=== PATIENT | male | born 2000 | race Caucasian/White ===

== ENCOUNTER 2021-05-26 19:47 | Emergency (ER) | payer OTHER, SELFPAY ==
[2021-05-26 20:09] VITALS: BP 132/62; PULSE 76; RESP 18; TEMP 36.7; O2SAT 100; BMI 30.5
--- NOTE | 2021-05-26 21:15 | ED_ITS ---
HPI - Ear Problem General Chief complaint: Ear Problems Stated complaint: ear/ jaw pain Time Seen by Provider: 05/26/21 21:15 Source: patient Mode of arrival: ambulatory Limitations: no limitations History of Present Illness HPI Narrative: Patient complaining of pain in the right preauricular area and right ear for last 2 days seen the doctor at urgent care advised antibiotic but patient has not taken the medicine yet no fever no chills no sore throat no shortness of breath or cough Related Data Allergies Allergy/AdvReac Type Severity Reaction Status Date / Time No Known Allergies Allergy Verified 05/26/21 20:09 Review of Systems Review of Systems: Yes all other systems are reviewed and are negative PENDING SALE TO [facility] Past Medical History Medical History No active medical problems Social History Social History Advance Directives: No Physical Exam Vital Signs: Vital Signs: Last Vital Signs Temp 98.0 F 05/26/21 20:09 Pulse 76 05/26/21 20:09 Resp 18 05/26/21 20:09 BP 132/62 05/26/21 20:09 Pulse Ox 100 05/26/21 20:09 Body Mass Index 30.5 Const: General: no acute distress, well developed, alert and awake HENMT: Head: Yes normal to inspection and Yes normocephalic Ears: hearing grossly normal bilaterally, external ears normal, TM normal on the left, EAC's normal, mastoids normal and Abnormal EAC present (Bacitracin in the EAC) erythema General nose exam: Normal external nose present Mouth: Normal oral and palatal mucosa present Throat: Yes posterior oropharynx normal Resp: Effort & Inspection: normal respiratory effort Auscultation: clear to auscultation bilaterally Discharge Plan Discharge Clinical Impression: Otitis media Patient Disposition: Home, Self-Care Instructions: Ear Infection (ED) Additional Instructions: Take antibiotic as prescribed Interventions: ED Discharge Assessment Last Done: 05/26/21 21:38 Discharge Date/Time: 05/26/21 21:40
[2021-05-26] MEDS: Amoxicillin/Potassium Clav 875 MG TABLET PO (21:24)
== END 2021-05-26 21:40 | disposition home or self-care (01) ==
PROVIDERS: Emergency Provider Internal Medicine
DX: H66.91 Otitis media, unspecified, right ear (principal); H92.01 Otalgia, right ear
CPT/HCPCS: 99283

== ENCOUNTER 2021-05-27 05:04 | Emergency (ER) | payer OTHER, SELFPAY ==
[2021-05-27 05:37] VITALS: BP 160/78; PULSE 112; RESP 16; TEMP 37.6; O2SAT 98; BMI 25.0
[2021-05-27 06:10] LABS: IDNOW Serial# 9DD0AD1C
[2021-05-27 06:11] LABS: COVID-19 Test Positive (Negative)
--- NOTE | 2021-05-27 06:22 | ED.GENADULT ---
HPI - General Adult General Chief complaint: Fever Stated complaint: Covid symptoms Time Seen by Provider: 05/27/21 05:21 Source: patient Mode of arrival: ambulatory Limitations: no limitations History of Present Illness HPI narrative: 21-year-old male came in for evaluation of flu-like symptoms. For 3 days patient began having generalized body ache, congestion, runny nose, patient did not receive vaccination for COVID, patient was tested known negative for COVID 3 days ago but still have the symptoms and patient is concerned about COVID infection. Related Data Allergies Allergy/AdvReac Type Severity Reaction Status Date / Time No Known Allergies Allergy Verified 05/26/21 20:09 Review of Systems Review of Systems: All other systems are reviewed and are negative Constitutional: Reports as per HPI and Reports no additional constitutional complaints Eyes: Reports as per HPI and Reports no additional eye complaints Reports system reviewed and no additional complaints, except as documented Cardiovascular: Reports as per HPI and Reports no additional cardiovascular complaints Respiratory: Reports as per HPI and Reports no additional respiratory complaints Gastrointestinal: Reports as per HPI and Reports no additional gastrointestinal complaints Genitourinary: Reports no additional female genitourinary complaints Musculoskeletal: Reports no additional musculoskeletal complaints Skin/Breast: Reports system reviewed and no additional complaints, except as docu Psychiatric: Reports no additional psychiatric complaints Endocrine: Reports no additional endocrine complaints Hematologic/Lymphatic: Reports no additional hematologic/lymphatic complaints Allergic/Immunologic: Reports no additional allergic/immunologic complaints Reports system reviewed and no additional complaints, except as documented and Reports Abnormal speech present FOR[facility] Past Medical History Medical History No active medical problems Social History Social History Advance Directives: No Advance Directives Information Provided: Yes Physical Exam Vital Signs: Vital Signs: Last Vital Signs Temp 99.7 F 05/27/21 05:37 Pulse 112 H 05/27/21 05:37 Resp 16 05/27/21 05:37 BP 160/78 H 05/27/21 05:37 Pulse Ox 98 05/27/21 05:37 Body Mass Index 25.0 Vital signs have been reviewed as appeared to be correct. Blood pressure normal. Heart rate normal. Respiration rate normal. Temperature normal. Oxygen saturation normal. Appearance: Alert. Oriented X3. No acute distress. Head: Normal external exam. Normocephalic. Atraumatic. No Zavala signs noted. No raccoon eyes noted Eyes: PERRLA. EOMI. Conjunctiva and sclera normal. Eyelids normal. ENT: TM's Normal. Pharynx normal. Uvula midline. Moist mucous membranes. No trismus noted. No drooling noted. No muffled voice noted. Neck: Normal inspection. Neck supple. FROM. No adenopathy. Thyroid Normal. No meningeal signs. No neck mass noted. CVS: Normal heart rate and rhythm. Heart sound normal. No murmurs noted. Pulses normal throughout. Respiratory: No respiratory distress. Painless inspiration. Breath sounds normal. No wheezes/rales/rhonchi noted. Chest nontender. No accessory muscle usage noted or decreased air movement noted. Abdomen: Soft and nontender. Bowel sounds normal in all 4 quadrants. No distention noted. No organomegaly noted. No visible injury noted. Back: No CVA tenderness. Full range of motion noted. Skin: Skin warm and dry. Normal skin color. Normal skin turgor. No rashes/lesions/lacerations noted. Extremities: No lower extremity edema. Extremities exhibit normal range of motion. Extremities nontender. Neuro: Oriented X 3. Cranial nerve exam: II-XII are grossly intact No motor deficit. No sensory deficit. Reflexes normal. Medical Decision Making Lab Data Lab results reviewed: Yes I reviewed the patient's lab results. Labs: Lab Results 05/27/21 Range/Units 05:46 COVID-19 (HA) Positive A (Negative) COVID-19 Clin Com See Note Discharge Plan Discharge Clinical Impression: COVID-19 Patient Disposition: Home, Self-Care Instructions: COVID-19 (Coronavirus Disease 2019) (ED) Additional Instructions: Make sure to isolate yourself/self-quarantine for the next 2 weeks. Referrals: Physician,Unknown [Primary Care Provider] - 2 weeks Stand Alone Forms: Work/School Release
== END 2021-05-27 09:54 | disposition home or self-care (01) ==
PROVIDERS: Emergency Provider Emergency Medicine
DX: U07.1 COVID-19 (principal); R50.9 Fever, unspecified
CPT/HCPCS: 36415; 87635; 99283; 99284

== ENCOUNTER 2021-09-05 15:30 | Emergency (ER) | payer OTHER, SELFPAY | END 2021-09-05 19:10 | disposition left against medical advice (07) | PROVIDERS: Emergency Provider Emergency Medicine | DX: R59.9 Enlarged lymph nodes, unspecified (principal) ==

== ENCOUNTER 2021-09-05 21:10 | Emergency (ER) | payer OTHER, SELFPAY ==
--- NOTE | 2021-09-05 22:06 | PC.NURSE ---
this patient was called multiple times in triage without a response, registration stated that the patient had been here earlier in the day and had left due to the wait so its likely he had left again.
== END 2021-09-05 22:07 | disposition left against medical advice (07) ==
PROVIDERS: Emergency Provider Emergency Medicine
DX: R59.9 Enlarged lymph nodes, unspecified (principal)

== ENCOUNTER 2021-09-05 22:40 | Emergency (ER) | payer OTHER, SELFPAY ==
--- NOTE | ~2021-09-05 | XR_ITS ---
EXAMINATION: XR CHEST CLINICAL INFORMATION: Shortness of breath. COMPARISON: None TECHNIQUE: AP view of the chest was obtained. FINDINGS: No significant abnormality is noted involving the heart, lungs, mediastinum, bony thorax or soft tissues. XR/XR chest 1V IMPRESSION: Unremarkable examination.
[2021-09-05 22:47] VITALS: BP 146/78; PULSE 81; RESP 17; TEMP 36.7; O2SAT 99; BMI 28.3
[2021-09-05 23:14] LABS: COVID-19 Test Negative (Negative); IDNOW Serial# 9DD0AD1C
--- NOTE | 2021-09-05 23:54 | ED.GENADULT ---
HPI - General Adult General Chief complaint: General Medical Stated complaint: swollen glands Time Seen by Provider: 09/05/21 23:54 History of Present Illness HPI narrative: Patient is a 21-year-old male presents today with having lymph nodes palpable in his neck. Positive four-week history of chills coughing generalized malaise. Positive night sweats. Patient denies any loss of weight. Complaining of some sore throat as well. No diaphoresis. Denies any nausea vomiting. Positive minimal coughing. Related Data Previous Rx's Medication Instructions Recorded ibuprofen 400 mg tablet 400 mg PO Q6H PRN #20 tab 09/06/21 ondansetron HCl 4 mg tablet 4 mg PO Q8H PRN #10 tab 09/06/21 (Zofran) Allergies Allergy/AdvReac Type Severity Reaction Status Date / Time No Known Allergies Allergy Verified 09/05/21 22:46 Review of Systems Review of Systems: positive night sweats positive generalized malaise PMFSH Past Medical History Attestation statement: The following information was validated with the patient. Medical History No active medical problems Social History Social History Advance Directives: No Advance Directives Information Provided: Yes Physical Exam Vital Signs: Vital Signs: Last Vital Signs Temp 98.1 F 09/05/21 22:47 Pulse 81 09/05/21 22:47 Resp 17 09/05/21 22:47 BP 146/78 H 09/05/21 22:47 Pulse Ox 99 09/05/21 22:47 BMI result Body Mass Index 28.3 Appearance: Alert. Oriented X3. No acute distress. Eyes: Pupils equal, round and reactive to light. ENT: Pharynx normal. Neck: Normal inspection. Neck supple. Positive lymph nodes noted in the anterior and posterior triangle. No crepitus CVS: Normal heart rate and rhythm. Pulses normal. Normal S1 and S2 Respiratory: No respiratory distress. Breath sounds normal. No Wheezing. No rales Abdomen: Soft and nontender. No rigidity. No distention. good BS x4 Skin: Skin warm and dry. Normal skin color. Normal skin turgor. Extremities: No lower extremity edema. Neurovascular intact to all extremities. No Lacerations. No Rash Neuro: Oriented X 3. No motor deficit. No sensory deficit. Moving all extermities. No slurred speech Medical Decision Making MDM Narrative Medical decision making narrative: Positive lymph node in the anterior and posterior triangle of the neck. Question if patient has viral infection versus additional pathology including lymphoma. Chest x-ray was grossly negative for any acute infiltrate. White count was normal. There is 40% lymphocyte with a lot atypicals.. Electrolyte was normal. Cannot exclude the possibility of lymphoma. Monospot is positive more likely this is secondary to mononucleosis. Abdominal exam is soft. There is no enlarged spleen noted. Will discharge patient home follow-up with Oncology on an outpatient basis. Medical Records Medical records reviewed: Yes I reviewed the patient's medical records. Lab Data Result diagrams: 09/06/21 00:26 09/06/21 00:25 Labs: Lab Results 09/05/21 09/06/21 09/06/21 Range/Units 22:53 00:25 00:25 WBC (4.8-10.8) X10*3/uL RBC (4.60-5.80) X10*6/uL Hgb (14.0-18.0) g/dl Hct (42.0-52.0) % MCV (80.0-98.0) fL MCH (27.0-33.0) pg MCHC (31.0-36.0) g/dl RDW (11.0-16.0) % Plt Count (160-400) X10*3/uL MPV (9.4-12.4) fL Immature Gran % (Auto) Neut % (Auto) Lymph % (Auto) [place] % (Auto) Eos % (Auto) Baso % (Auto) Lymph # (Auto) [place] # (Auto) Eos # (Auto) Baso # (Auto) Abs Immat Gran (auto) Absolute Neuts (auto) Absolute Nucleated RBC (0.0-0.012) X10*3/uL Nucleated RBC % (auto) (0.0-0.2) /100WBC Neutrophils % (Manual) (45-73) % Band Neutrophils % (3-5) % Lymphocytes % (Manual) (20-40) % Atypical Lymphs % (Man) (0-6) % Monocytes % (Manual) (2-11) % Abs Neuts (Manual) (2.0-8.3) X10*3/uL Lymphocytes # (Manual) (1.2-4.9) X10*3/uL Atyp Lymphs # (Manual) x10*3/uL Monocytes # (Manual) (0.1-1.2) X10*3/uL Platelet Estimate (NORMAL) Plt Morphology Comment RBC Morphology ESR 6 (0-15) MM/HR Sodium 140 (135-145) mmol/L Potassium 3.7 (3.3-5.1) mmol/L Chloride 105 (96-108) mmol/L Carbon Dioxide 27 (22-29) mmol/L Anion Gap 12 (12-20) BUN 10 (9-16) mg/dL Creatinine 0.92 (0.5-1.4) mg/dL Estim Creat Clear Calc 156.2 Estimated GFR > 60 Random Glucose 99 (60-115) mg/dL Uric Acid 6.2 (3.4-7.0) mg/dL Calcium 9.9 (8.4-10.2) mg/dL Phosphorus 2.9 (2.7-4.5) mg/dL Magnesium 1.9 (1.6-2.6) mg/dL Ferritin 133 (20-250) ng/mL Total Bilirubin 0.4 (0.0-1.0) mg/dL AST 32 (5-37) U/L ALT 63 H (0-40) U/L Alkaline Phosphatase 84 (39-117) U/L Lactate Dehydrogenase 265 (118-273) U/L C-Reactive Protein 0.18 (< or = 0.50) mg/dL Total Protein 7.3 (6.5-8.0) g/dL Albumin 4.2 (3.5-5.0) g/dL COVID-19 (HA) Negative (Negative) COVID-19 Clin Com See Note Monoscreen (Negative) 09/06/21 09/06/21 Range/Units 00:25 00:26 WBC 8.5 (4.8-10.8) X10*3/uL RBC 5.02 (4.60-5.80) X10*6/uL Hgb 15.2 (14.0-18.0) g/dl Hct 44.7 (42.0-52.0) % MCV 89.0 (80.0-98.0) fL MCH 30.3 (27.0-33.0) pg MCHC 34.0 (31.0-36.0) g/dl RDW 12.9 (11.0-16.0) % Plt Count 238 (160-400) X10*3/uL MPV 9.5 (9.4-12.4) fL Immature Gran % (Auto) Cancelled Neut % (Auto) Cancelled Lymph % (Auto) Cancelled Cameron % (Auto) Cancelled Eos % (Auto) Cancelled Baso % (Auto) Cancelled Lymph # (Auto) Cancelled Cameron # (Auto) Cancelled Eos # (Auto) Cancelled Baso # (Auto) Cancelled Abs Immat Gran (auto) Cancelled Absolute Neuts (auto) Cancelled Absolute Nucleated RBC 0.000 (0.0-0.012) X10*3/uL Nucleated RBC % (auto) 0.0 (0.0-0.2) /100WBC Neutrophils % (Manual) 25 L (45-73) % Band Neutrophils % 4 (3-5) % Lymphocytes % (Manual) 41 H (20-40) % Atypical Lymphs % (Man) 23 H (0-6) % Monocytes % (Manual) 7 (2-11) % Abs Neuts (Manual) 2.5 (2.0-8.3) X10*3/uL Lymphocytes # (Manual) 3.5 (1.2-4.9) X10*3/uL Atyp Lymphs # (Manual) 2.0 x10*3/uL Monocytes # (Manual) 0.6 (0.1-1.2) X10*3/uL Platelet Estimate NORMAL (NORMAL) Plt Morphology Comment NORMAL RBC Morphology NORMAL ESR (0-15) MM/HR Sodium (135-145) mmol/L Potassium (3.3-5.1) mmol/L Chloride (96-108) mmol/L Carbon Dioxide (22-29) mmol/L Anion Gap (12-20) BUN (9-16) mg/dL Creatinine (0.5-1.4) mg/dL Estim Creat Clear Calc Estimated GFR Random Glucose (60-115) mg/dL Uric Acid (3.4-7.0) mg/dL Calcium (8.4-10.2) mg/dL Phosphorus (2.7-4.5) mg/dL Magnesium (1.6-2.6) mg/dL Ferritin (20-250) ng/mL Total Bilirubin (0.0-1.0) mg/dL AST (5-37) U/L ALT (0-40) U/L Alkaline Phosphatase (39-117) U/L Lactate Dehydrogenase (118-273) U/L C-Reactive Protein (< or = 0.50) mg/dL Total Protein (6.5-8.0) g/dL Albumin (3.5-5.0) g/dL COVID-19 (HA) (Negative) COVID-19 Clin Com Monoscreen Positive A (Negative) Discharge Plan Discharge Clinical Impression: Lymph node enlargement, Cytomegalovirus mononucleosis Patient Disposition: Home, Self-Care Instructions: Mononucleosis (ED), Lymphadenopathy (ED) Additional Instructions: cannot exclude the possibility of lymphoma. Close follow-up with Oncology. Worsening condition return to the ED. Prescriptions: New ondansetron HCl [Zofran] 4 mg tablet 4 mg PO Q8H PRN (Reason: nausea and vomiting) Qty: 10 RF: 0 ibuprofen 400 mg tablet 400 mg PO Q6H PRN (Reason: pain) Qty: 20 RF: 0 Referrals: Getachew Larose MD [Physician] - 2 days ( Risk of lymphoma exist. Please closely follow-up with Oncology.)
[2021-09-06 00:35] LABS: Hematocrit 44.7 % (42.0-52.0); Hemoglobin 15.2 g/dl (14.0-18.0); Mean Corpuscular Hemoglobin 30.3 pg (27.0-33.0); Mean Platelet Volume 9.5 fL (9.4-12.4); Platelet Count 238 X10*3/uL (160-400); Red Blood Count 5.02 X10*6/uL (4.60-5.80); Red Cell Distribution Width 12.9 % (11.0-16.0); White Blood Count 8.5 X10*3/uL (4.8-10.8)
[2021-09-06 00:50] LABS: Alanine Aminotransferase 63 U/L (0-40); Albumin Level 4.2 g/dL (3.5-5.0); Alkaline Phosphatase 84 U/L (39-117); Anion Gap 12 (12-20); Aspartate Amino Transferase 32 U/L (5-37); Bilirubin Total 0.4 mg/dL (0.0-1.0); Blood Urea Nitrogen 10 mg/dL (9-16); C Reactive Protein 0.18 mg/dL (< or = 0.50); Calcium 9.9 mg/dL (8.4-10.2); Carbon Dioxide 27 mmol/L (22-29); Chloride 105 mmol/L (96-108); Creatinine Clr Calc Pharmacy 156.2; Estimated Glomerular Filt Rate > 60; Glucose Random 99 mg/dL (60-115); Lactate Dehydrogenase 265 U/L (118-273); Magnesium 1.9 mg/dL (1.6-2.6); Phosphorus 2.9 mg/dL (2.7-4.5); Potassium 3.7 mmol/L (3.3-5.1); Sodium 140 mmol/L (135-145); Total Protein 7.3 g/dL (6.5-8.0); Uric Acid 6.2 mg/dL (3.4-7.0)
[2021-09-06 00:55] LABS: Atypical Lymphs Percent Manual 23 % (0-6); Band Neutrophils Percent 4 % (3-5); Lymphocytes Absolute Manual 3.5 X10*3/uL (1.2-4.9); Lymphocytes Percent Manual 41 % (20-40); Monocytes Absolute Manual 0.6 X10*3/uL (0.1-1.2); Monocytes Percent Manual 7 % (2-11); Neutrophils Absolute Manual 2.5 X10*3/uL (2.0-8.3); Neutrophils Percent Manual 25 % (45-73); Platelet Estimate NORMAL (NORMAL); Platelet Morphology Comment NORMAL; RBC Morphology NORMAL
[2021-09-06 01:10] LABS: Ferritin 133 ng/mL (20-250)
[2021-09-06 01:13] LABS: Monotest Positive (Negative)
[2021-09-06 01:14] LABS: Erythrocyte Sedimentation Rate 6 MM/HR (0-15)
== END 2021-09-06 01:52 | disposition home or self-care (01) ==
PROVIDERS: Emergency Provider Emergency Medicine Emergency Medical Services
DX: B27.10 Cytomegaloviral mononucleosis without complications (principal); R59.0 Localized enlarged lymph nodes; Z20.822 Contact with and (suspected) exposure to COVID-19
CPT/HCPCS: 36415; 71045; 80053; 82728; 83615; 83735; 84100; 84550; 85007; 85027; 85652; 86140; 86308; 87635; 99283

== ENCOUNTER 2024-02-02 14:51 | Emergency (ER) | payer BC, SELFPAY ==
--- NOTE | ~2024-02-02 | XR_ITS ---
EXAMINATION: PORTABLE CHEST 1 VIEW CLINICAL INFORMATION: chest pain. COMPARISON: 09/06/2021. TECHNIQUE: Portable frontal view of the chest was obtained. FINDINGS: The lungs are well expanded. No focal infiltrate, effusion, edema, or pneumothorax. Cardiac and mediastinal silhouettes are within normal limits for technique. No acute bony abnormality seen. XR/XR chest 1V IMPRESSION: No evidence of acute disease.
--- NOTE | 2024-02-02 14:53 | ECG_ITS ---
Test Reason : CHEST PAIN Blood Pressure : / mmHG Vent. Rate : 083 BPM Atrial Rate : 083 BPM P-R Int : 180 ms QRS Dur : 080 ms QT Int : 338 ms P-R-T Axes : 052 033 036 degrees QTc Int : 397 ms Normal sinus rhythm with sinus arrhythmia Normal ECG No previous ECGs available Referred By: Pamela Michael Electronically Signed By:Charlie Mcfarland
[2024-02-02 15:27] VITALS: BP 141/63; PULSE 84; RESP 18; TEMP 36.7; O2SAT 99; BMI 38.0
--- NOTE | 2024-02-02 15:33 | ED_ITS ---
HPI - General Adult General Chief complaint: Arrhythmia/Palpitations Stated complaint: chest pain Related Data Previous Rx's ?Medication ?Instructions ?Recorded ibuprofen 400 mg tablet 400 mg PO Q6H PRN pain #20 tabs 09/06/21 ondansetron HCl 4 mg tablet 4 mg PO Q8H PRN nausea and 09/06/21 (Zofran) vomiting #10 tabs Allergies Allergy/AdvReac Type Severity Reaction Status Date / Time No Known Allergies Allergy Verified 02/02/24 15:28 [facility] Past Medical History Medical History No active medical problems Social History Social History Advance Directives: No Advance Directives Information Provided: No Do you have a plan to hurt others: No Plan Physical Exam ED Vital Signs: Vital Signs - 24 hr 02/02/24 15:27 Temperature 98.1 F Pulse Rate 84 Respiratory Rate 18 Blood Pressure 141/63 H Pulse Oximetry 99 Oxygen Delivery Method Room Air BMI result Body Mass Index 38.0 Course Course Course Narrative: This is a rapid medical exam completed by Caryn GARCIAN: Additional HPI, ROS, PE not included below will be deferred to primary provider. Concerns for sharp left chest pain and dizziness while walking earlier today. States he has been having chest palpitations for the last 6 weeks and is being followed by cardiology with a two week holter monitor. Per pt he was told he had an episode of Vtach picked up on the monitor Plan: EKG, blood work, CXR Medical Decision Making Lab Data 02/02/24 16:25 02/02/24 16:25 Labs: Lab Results 02/02/24 Range/Units 16:25 WBC 7.4 (4.8-10.8) X10*3/uL RBC 5.01 (4.60-5.80) X10*6/uL Hgb 15.4 (14.0-18.0) g/dl Hct 43.9 (42.0-52.0) % MCV 87.6 (80.0-98.0) fL MCH 30.7 (27.0-33.0) pg MCHC 35.1 (31.0-36.0) g/dl RDW 12.6 (11.0-16.0) % Plt Count 263 (160-400) X10*3/uL MPV 10.0 (9.4-12.4) fL Immature Gran % (Auto) 0.3 (0.0-0.4) % Neut % (Auto) 55.1 (45-73) % Lymph % (Auto) 34.0 (20-40) % [place] % (Auto) 8.2 (2-11) % Eos % (Auto) 2.0 (0-4) % Baso % (Auto) 0.4 (0-2) % Lymph # (Auto) 2.5 (1.2-4.9) X10*3/uL [place] # (Auto) 0.6 (0.1-1.2) X10*3/uL Eos # (Auto) 0.2 (0.0-0.4) X10*3/uL Baso # (Auto) 0.0 (0.0-0.2) X10*3/uL Abs Immat Gran (auto) 0.02 (0.00-0.03) X10*3/uL Absolute Neuts (auto) 4.1 (2.0-8.3) x10*3/uL Absolute Nucleated RBC 0.000 (0.0-0.012) X10*3/uL Nucleated RBC % (auto) 0.0 (0.0-0.2) /100WBC Sodium 141 (135-145) mmol/L Potassium 4.1 (3.3-5.1) mmol/L Chloride 106 (96-108) mmol/L Carbon Dioxide 26 (22-29) mmol/L Anion Gap 13 (12-20) BUN 14 (9-16) mg/dL Creatinine 1.17 (0.5-1.4) mg/dL Estim Creat Clear Calc 135.3 Estimated GFR > 60 Random Glucose 98 (60-115) mg/dL Calcium 9.4 (8.4-10.2) mg/dL Magnesium 1.8 (1.6-2.6) mg/dL Total Bilirubin 0.4 (0.0-1.0) mg/dL AST 29 (5-37) U/L ALT 44 H (0-40) U/L Alkaline Phosphatase 89 (39-117) U/L Troponin I High Sens 4.5 (<3.5-35.0) ng/L Total Protein 7.5 (6.5-8.0) g/dL Albumin 4.4 (3.5-5.0) g/dL Discharge Plan Discharge Clinical Impression: Left before treatment completed Patient Disposition: Left W/O Completing Treatment Prescriptions: No Action ondansetron HCl [Zofran] 4 mg tablet 4 mg PO Q8H PRN (Reason: nausea and vomiting) Qty: 10 0RF ibuprofen 400 mg tablet 400 mg PO Q6H PRN (Reason: pain) Qty: 20 0RF Discharge Date/Time: 02/02/24 19:09
[2024-02-02 16:32] LABS: MANUAL DIFF FLAG NO
[2024-02-02 16:33] LABS: Basophils Percent Auto 0.4 % (0-2); Eosinophils Absolute Auto 0.2 X10*3/uL (0.0-0.4); Hematocrit 43.9 % (42.0-52.0); Hemoglobin 15.4 g/dl (14.0-18.0); Imm Gran Abs Auto 0.02 X10*3/uL (0.00-0.03); Imm Gran Pct Auto 0.3 % (0.0-0.4); Lymphocytes Absolute Auto 2.5 X10*3/uL (1.2-4.9); Mean Corpuscular HGB Conc 35.1 g/dl (31.0-36.0); Mean Corpuscular Hemoglobin 30.7 pg (27.0-33.0); Mean Corpuscular Volume 87.6 fL (80.0-98.0); Monocytes Absolute Auto 0.6 X10*3/uL (0.1-1.2); Monocytes Percent Auto 8.2 % (2-11); Neutrophils Absolute Auto 4.1 x10*3/uL (2.0-8.3); Neutrophils Percent Auto 55.1 % (45-73); Platelet Count 263 X10*3/uL (160-400); Red Blood Count 5.01 X10*6/uL (4.60-5.80); Red Cell Distribution Width 12.6 % (11.0-16.0); White Blood Count 7.4 X10*3/uL (4.8-10.8)
[2024-02-02 17:12] LABS: Troponin-I High Sensitivity 4.5 ng/L (<3.5-35.0)
[2024-02-02 19:12] LABS: Alanine Aminotransferase 44 U/L (0-40); Albumin Level 4.4 g/dL (3.5-5.0); Alkaline Phosphatase 89 U/L (39-117); Anion Gap 13 (12-20); Aspartate Amino Transferase 29 U/L (5-37); Bilirubin Total 0.4 mg/dL (0.0-1.0); Blood Urea Nitrogen 14 mg/dL (9-16); Calcium 9.4 mg/dL (8.4-10.2); Carbon Dioxide 26 mmol/L (22-29); Chloride 106 mmol/L (96-108); Creatinine Clr Calc Pharmacy 135.3; Estimated Glomerular Filt Rate > 60; Glucose Random 98 mg/dL (60-115); Magnesium 1.8 mg/dL (1.6-2.6); Potassium 4.1 mmol/L (3.3-5.1); Sodium 141 mmol/L (135-145); Total Protein 7.5 g/dL (6.5-8.0)
== END 2024-02-02 19:09 | disposition left against medical advice (07) ==
PROVIDERS: Nurse Practitioner Family; Emergency Provider Emergency Medicine
DX: R07.9 Chest pain, unspecified (principal); R00.2 Palpitations
CPT/HCPCS: 36415; 71045; 80053; 83735; 84484; 85025; 93005; 99283

== ENCOUNTER → 2024-02-02 14:53 | Outpatient (BNV) | payer BC, SELFPAY | PROVIDERS: Emergency Provider Emergency Medicine; Visit Provider Internal Medicine Cardiovascular Disease | DX: R07.9 Chest pain, unspecified (principal) | CPT/HCPCS: 93010 ==